=== PATIENT | male | born 1980 | race Caucasian/White ===

== ENCOUNTER → 2020-12-20 10:28 | Outpatient (CLI) | payer SELFPAY ==
--- NOTE | ~2020-12-20 | XR_ITS ---
XR femur RT min 2V DATE: 12/20/2020 11:02 INDICATION: Right femur pain TECHNIQUE: AP and lateral views COMPARISON: None FINDINGS: Mild osteitis pubis. Right sacral iliac joint appears normal. Mild enthesopathy of the righ t iliac crest superolaterally. Right hip joint space is well preserved. No significant abnormality of the right knee joint. No right knee joint effusion is evident. No fracture or dislocation, periosteal reaction or bone destruction of the right femur. Radiopaque device is noted at the right lateral femoral condyle and postoperative change of the proxi mal tibia, likely related to cruciate ligament repair. IMPRESSION: Status post cruciate ligament repair; otherwise no significant abnormality of the right f emur Reviewed, dictated and finalized at location A. 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
--- NOTE | ~2020-12-20 | US_ITS ---
EXAMINATION: US soft tissue LE RT EXAM DATE: 12/20/2020 10:54 INDICATION: Right thigh pain. TECHNIQUE: Multiple grayscale and Doppler images of the right thigh symptomatic region were obtained (by a technologist who performed the scan) and subsequently reviewed. There is no prior study for co mparison. FINDINGS: Scanning in the symptomatic right anterior mid thigh region demonstrates small amount unremarkable gonsalez bcutaneous fat. The underlying musculature is also unremarkable. IMPRESSION: 1. Unremarkable ultrasound exam. Reviewed, dictated and finalized at location B. RICAL CONTROL OPERATOR
== END ==
PROVIDERS: PCP Physician Assistant; Visit Provider Physician Assistant
DX: M79.651 Pain in right thigh (principal); Z98.890 Other specified postprocedural states
CPT/HCPCS: 73552; 76882

== ENCOUNTER 2023-10-16 03:16 | Emergency (ER) | payer SELFPAY ==
--- NOTE | ~2023-10-16 | XR_ITS ---
AP and lateral views of the left femur Clinical History: Foreign body, laceration Findings: No acute fracture or dislocation is seen. Osseous alignment is anatomic. Visualized joint s paces are grossly preserved. Soft tissues are unremarkable. Impression: Unremarkable left femoral radiographs. Reviewed, dictated and finalized at location . [employer] Impression: Unremarkable left femoral radiographs.
[2023-10-16 03:21] VITALS: BP 137/90; PULSE 90; RESP 20; TEMP 37.1; O2SAT 100
--- NOTE | 2023-10-16 07:16 | ED.GENADULT ---
HPI - General Adult General Chief complaint: Wound/Laceration <Raymundo Franco MD - Last Filed: 10/16/23 16:59> Stated complaint: laceration <Raymundo Franco MD - Last Filed: 10/16/23 16:59> Time Seen by Provider: 10/16/23 06:56 <Raymundo Franco MD - Last Filed: 10/16/23 16:59> History of Present Illness HPI narrative: 42-year-old male presenting to emergency department for evaluation of a laceration to his left lateral thigh. Patient reports he was taking out the garbage when some glass and the covers back cut his left leg. Patient denies any associated numbness or weakness. Patient states his tetanus is not up-to-date. Patient denies any other pain or injury. <Raymundo Franco MD - Last Filed: 10/16/23 16:59> Related Data Allergies/adverse reactions: Allergies Allergy/AdvReac Type Severity Reaction Status Date / Time ibuprofen [From Motrin] Allergy Swelling Verified 10/16/23 03:24 <Raymundo Franco MD - Last Filed: 10/16/23 16:59> Review of Systems Review of Systems: All systems reviewed & are unremarkable except as noted in HPI and below <Raymundo Franco MD - Last Filed: 10/16/23 16:59> Exam Narrative: APPEARANCE: Well appearing, no pain, no distress, well-nourished. HEAD: normocephalic, atraumatic. EYES: PERRLA/EOMI, conjunctivae clear. NOSE: Normal no drainage EARS:TMS clear with good light reflex. THROAT: Pharynx clear, no exudate. NECK: Supple. No adenopathy, no masses. RESPIRATORY: Airway patent, respirations nonlabored. Clear to auscultation bilaterally, no rales, rhonchi, wheezing. CARDIOVASCULAR: Regular rate and rhythm without murmurs rubs or gallops. ABDOMINAL: Soft, nontender, nondistended, normal bowel sounds MUSCULOSKELETAL: Moves all extremities. Strength/ROM intact, No edema, No calf tenderness. NEURO: Alert. Cranial nerves II through XII intact. Good gait. Good coordination SKIN: Moderate-sized laceration to left lateral leg PSYCHIATRIC: Normal affect/mood. <Raymundo Franco MD - Last Filed: 10/16/23 16:59> Course Course Emergency Course: 42-year-old male presenting emergency department for evaluation of a laceration. Patient's tetanus was updated. X-ray shows no foreign body . laceration was repaired as described in the procedure note. <Raymundo Franco MD - Last Filed: 10/16/23 16:59> Vital Signs Vital signs: Vital Signs Temperature 98.7 F 10/16/23 03:21 Pulse Rate 90 10/16/23 03:21 Respiratory Rate 20 10/16/23 03:21 Blood Pressure 137/90 10/16/23 03:21 Pulse Oximetry 100 10/16/23 03:21 Oxygen Delivery Room Air 10/16/23 03:21 Temperature 98.7 F 10/16/23 03:21 Pulse Rate 70 10/16/23 10:27 Respiratory Rate 16 10/16/23 10:27 Blood Pressure 122/70 10/16/23 10:27 Pulse Oximetry 100 10/16/23 10:27 Oxygen Delivery Room Air 10/16/23 03:21 <Raymundo Franco MD - Last Filed: 10/16/23 16:59> Vital Signs Temperature 98.7 F 10/16/23 03:21 Pulse Rate 90 10/16/23 03:21 Respiratory Rate 20 10/16/23 03:21 Blood Pressure 137/90 10/16/23 03:21 Pulse Oximetry 100 10/16/23 03:21 Oxygen Delivery Room Air 10/16/23 03:21 Temperature 98.7 F 10/16/23 03:21 Pulse Rate 70 10/16/23 10:27 Respiratory Rate 16 10/16/23 10:27 Blood Pressure 122/70 10/16/23 10:27 Pulse Oximetry 100 10/16/23 10:27 Oxygen Delivery Room Air 10/16/23 03:21 <Winsome Yang, CLINICAL SUPPORT MANAGER - Last Filed: 10/16/23 10:25> Procedures Laceration Laceration 1: Date: 10/16/23 <Winsome Yang CLINICAL SUPPORT MANAGER - Last Filed: 10/16/23 10:25> Time: 10:21 <Winsome Yang CLINICAL SUPPORT MANAGER - Last Filed: 10/16/23 10:25> Site: lower extremity <Winsome Yang CLINICAL SUPPORT MANAGER - Last Filed: 10/16/23 10:25> Side (If applicable): left <Winsome Yang, CLINICAL SUPPORT MANAGER - Last Filed: 10/16/23 10:25> Size (cm): 6 <Winsome Yang, BABATUNDE - Last Filed: 10/16/23 10:25> Description: joseph
[2023-10-16] MEDS: LIDOCAINE HCL 1% LOCAL INJ 10 ML VIAL INFILTRATE (07:33)
[2023-10-16] MEDS: TETANUS,DIPHTHERIA,AC PERTUSSIS ADULT (0.5 ML) BOOSTRIX IM (07:33)
[2023-10-16 10:27] VITALS: BP 122/70; PULSE 70; RESP 16; O2SAT 100
== END 2023-10-16 10:28 | disposition home or self-care (01) ==
PROVIDERS: Emergency Provider Emergency Medicine; PCP Physician Assistant
DX: S71.112A Laceration without foreign body, left thigh, initial encounter (principal); W25.XXXA Contact with sharp glass, initial encounter; Z23 Encounter for immunization
CPT/HCPCS: 12002; 73552; 90471; 90715; 99283